=== PATIENT | female | born 1960 | race Caucasian/White ===

== ENCOUNTER 2016-10-22 20:45 | Emergency (ER) | payer OTHER ==
[2016-10-22] MEDS ORDERED: Pantoprazole IV* 40 MG IV ONE (23:01)
[2016-10-22] MEDS ORDERED: Al Hydrox/Mg Hydrox/Simet LIQ* 30 ML UDC PO ONE (23:01)
--- NOTE | 2016-10-22 23:02 | ED ---
Abdominal Pain/Female - HPI Summary HPI Summary: Pt here w/ epigastric pain and waking from sleep vomiting blood. Describes blood as "dark red" and "just kept coming". Reports this has happened to her 4 x in the past few months and thought she should come in to get it checked out tonight as it seemed like more than usual. Has been feeling fatigued over the past few weeks as well. Has h/o GERD - takes PPI occasionally but not routinely. Has not been taking peptobismal, etc. States she's trying to tx this by eating better - less coffee and switching to green tea which helps. Also avoid sauce, etc. Also takes Aleve daily for chronic pain. Smokes tobacco. Denies bleeding elsewhere or bruising. H/o hiatal hernia which she believes may be part of the issue today. Has had a colonoscopy in the past which she reports was normal. Has not been following w/ a PCP but states she has a h/o "weird labs " - does not recall details, timing or recourse due to "weird labs". Goes between constipation and diarrhea w/ stools x years. Denies dark tarry stools as well as hematochezia. Denies dysuria, urinary frequency/urgency, flank pain. H/o ETOH abuse w/o residual effects/complications of which she's aware. Takes librium daily and has not drank in years. Ab h/o entails Rt ovary partially removed d/t cyst - no cancer. She takes the following medications for pain and/or mood w/o recent change: *flexeril *Tramadol *seroquel *paxil *wellbutrin - History of Current Complaint Chief Complaint: EDAbdPain Stated Complaint: VOMITING BLOOD Time Seen by Provider: 10/22/16 22:36 Hx Obtained From: Patient Hx Last Menstrual Period: 20 years Pain Intensity: 9 Allergies/Adverse Reactions: Allergies Allergy/AdvReac Type Severity Reaction Status Date / Time Penicillins Allergy Intermediate Swelling Verified 06/15/15 12:51 Sulfa Antibiotics Allergy Mild Itching Verified 06/15/15 12:51 PMH/Surg Hx/FS Hx/Imm Hx Previously Healthy: Yes Endocrine/Hematology History: Denies: Hx Anticoagulant Therapy - daily Aleve for pain, Hx Blood Disorders, Hx Diabetes, Hx Thyroid Disease, Hx Anemia, Hx Unexplained Bleeding, Hx Coagulopothy, Autoimmune Disease Cardiovascular History: Denies: Hx Hypertension Respiratory History: Denies: Hx Asthma, Hx Chronic Obstructive Pulmonary Disease (COPD) GI History: Reports: Hx Gastroesophageal Reflux Disease, Hx Hiatal Hernia Denies: Hx Cirrhosis, Hx Crohn's Disease, Hx Diverticulosis, Hx Gall Bladder Disease, Hx Irritable Bowel, Hx Ulcer Psychiatric History: Reports: Other Psychiatric Issues/Disorders - Surgical History Surgery Procedure, Year, and Place: both knees,(cartilage repair) partial hyster (ovary/tube r/t tumor) Infectious Disease History: No Infectious Disease History: Denies: Hx Clostridium Difficile, Hx Hepatitis, Hx Human Immunodeficiency Virus (HIV), Hx of Known/Suspected MRSA, Hx Shingles, Hx Tuberculosis, History Other Infectious Disease, Traveled Outside the [place] in Last 30 Days - Family History Known Family History: Positive: None - Social History Occupation: Employed Full-time - overnight caregiver, care Alcohol Use: h/o abuse "years ago" Substance Use Type: Reports: None, Prescribed Smoking Status (MU): Current Every Day Smoker Type: Cigarettes Amount Used/How Often: ppd Review of Systems Positive: Fatigue. Negative: Fever, Chills Negative: Chest Pain Negative: Shortness Of Breath, Cough Gastrointestinal: Other - see HPI Positive: no symptoms reported Musculoskeletal: Other - chronic Skin: Negative Negative: Bruising Neurological: Negative Psychological: Normal All Other Systems Reviewed And Are Negative: Yes Physical Exam Triage Information Reviewed: Yes Vital Signs On Initial Exam: Initial Vitals Temp Pulse Resp BP Pulse Ox 97.3 F 90 15 119/84 97 10/22/16 20:45 10/22/16 20:45 10/22/16 20:45 10/22/16 20:45 10/22/16 20:45 Vital Signs Reviewed: Yes Appearance: Positive: Well-Appearing - generalized pallor, No Pain Distress, Well-Nourished Skin: Positive: Warm, Dry - no ecchymosis, no scabbing, no patechiae Head/Face: Positive: Normal Head/Face Inspection Eyes: Positive: Normal, EOMI, Conjunctiva Clear - anicteric sclera ENT: Positive: Hearing grossly normal, Pharynx normal - mucosa moist- no oral lesions or signs of bleeding observed Neck: Positive: Supple, Nontender Respiratory/Lung Sounds: Positive: Clear to Auscultation, Breath Sounds Present. Negative: Rales, Rhonchi, Wheezes Cardiovascular: Positive: Normal, RRR, Pulses are Symmetrical in both Upper and Lower Extremities, S1, S2. Negative: Murmur, Rub, Leg Edema Left, Leg Edema Right Abdomen Description: Positive: Soft, Other: - epigastric TTP - all other areas NTTP Bowel Sounds: Positive: Present Pelvic Exam: Positive: other - deferred Musculoskeletal: Positive: Normal, Strength/ROM Intact Neurological: Positive: Normal, Sensory/Motor Intact, Alert, Oriented to Person Place, Time, CN Intact II-III Psychiatric: Positive: Normal - Patricio Coma Scale Coma Scale Total: 15 Diagnostics - Vital Signs Vital Signs Temp Pulse Resp BP Pulse Ox 10/22/16 22:24 98.7 F 82 20 138/74 100 10/22/16 22:18 95 97 10/22/16 22:16 138/74 10/22/16 20:45 97.3 F 90 15 119/84 97 - Laboratory Result Diagrams: 10/22/16 22:45 10/22/16 22:45 Lab Statement: Any lab studies that have been ordered have been reviewed, and results considered in the medical decision making process. Re-Evaluation - Re-Evaluation First Eval Change: Improved - s/p rest, meds - still has some nausea Abdominal Pain Fem Course/Dx - Course Course Of Treatment: Pt presents w/ recurrent reported hematemesis w/ h/o poorly controlled and untreated GERD w/ hiatal hernia. No emesis episodes observed here in ED. CXR clear for gastric bubble in chest and aspiration pneumonia. Pt's vitals and labs are stable; (-) FOBT. Improved w/ rest in inclined position and w/ GI cocktail. D/c'd home w/ GERD/hernia instructions and stongly urged close f/u w/ GI. Pt agrees to establish w/ PCP and GI. She will also restart her home PPI and use lifestyle recommendations provided today (ie. STOP nsaid's, reduce smoking, coffee, don't overeat, sit up after meals, sleep w/ head of bed inclined, etc). Discussed danger s/sx of when to return to ED. Pt voices understanding. - Diagnoses Provider Diagnoses: GERD (gastroesophageal reflux disease) - Provider Notifications Discussed Care Of Patient With: Dr. Vidales Discharge - Discharge Plan Condition: Stable Disposition: HOME Patient Education Materials: Gastroesophageal Reflux Disease (ED) Forms: *Work Release Referrals: Prabhakar Cain MD [Medical Doctor] - Additional Instructions: You appear to have GERD, gastroesophageal reflux disorder. This was mostly relieved with maalox and protonix tonight. You were also given a nausea medication. It is recommended that you restart the prevacid you have at home. Take maalox and nausea medication as needed as well. You also expressed you are working on your diet which helps symptoms. Avoid greasy, spicy foods as well as overeating which can increase pressure in stomach and force contents up and out. It is also important that you do not lie down at least 90 minutes after eating and keep your head elevated when sleeping in general. DO NOT TAKE NSAID's - advil, ibuprofen, aleve, naproxen, aspirin. Avoid drinking alcohol, caffeine, and reduce/eliminate smoking. Follow-up with PCP and fretted string instrument repairer for further evaluation. Call tomorrow to schedule appointment. *If you develop a return of vomiting without rest and/or fever, chills, bloody diarrhea, worsening of abdominal pain return to ED
[2016-10-22] MEDS ORDERED: NS 0.9% 1000 ML* 1,000 ML IV ONE (23:04)
[2016-10-22 23:26] LABS: Hematocrit 37 % (35-47); Hemoglobin 11.9 g/dl (12.0-16.0); Mean Corpuscular HGB Conc 32 g/dl (31-36); Mean Corpuscular Hemoglobin 28 pg (27-31); Mean Corpuscular Volume 86 fL (80-97); Mean Platelet Volume 8 um3 (7.4-10.4); Red Blood Count 4.31 10^6/ul (4.0-5.4); Red Cell Distribution Width 15 % (10.5-15); White Blood Count 12.9 10^3/ul (3.5-10.8)
[2016-10-22 23:38] LABS: Albumin 3.9 g/dL (3.2-5.2); BUN/Creatinine Ratio 24.7 (8-20); C Reactive Protein 2.38 mg/L (< 5.00); Calcium 8.6 mg/dL (8.6-10.3); EGFR African American 106.4 (>60); EGFR Non-African American 82.8 (>60); Globulin 2.4 g/dL (2-4); Potassium 4.1 mmol/L (3.5-5.0); Total Bilirubin 0.2 mg/dL (0.2-1.0); Total Protein 6.3 g/dL (6.4-8.9)
[2016-10-22] MEDS ORDERED: Ondansetron ODT TAB* 4 MG PO ONE (23:58)
[2016-10-23 01:54] VITALS: BP 106/77
--- NOTE | 2016-10-23 07:34 | RAD ---
HISTORY: Vomiting blood, possible hiatal hernia COMPARISONS: None VIEWS:1: Single frontal portable view of the chest at 11:12 PM FINDINGS: LINES AND TUBES: None. CARDIOMEDIASTINAL SILHOUETTE: The cardiomediastinal silhouette is normal for portable technique. PLEURA: The costophrenic angles are sharp. No pleural abnormalities are noted. LUNG PARENCHYMA: There is linear opacification lung bases bilaterally ABDOMEN: The upper abdomen is clear. There is no subphrenic gas. BONES AND SOFT TISSUES: No bone or soft tissue abnormalities are noted. IMPRESSION: BIBASILAR LINEAR ATELECTASIS VERSUS PLEUROPARENCHYMAL SCARRING.
== END 2016-10-23 01:59 | disposition home or self-care (01) ==
LOC: ED 20:45
DX: K21.9 Gastro-esophageal reflux disease without esophagitis (principal); Z88.0 Allergy status to penicillin; Z88.8 Allergy status to other drugs, medicaments and biological substances; F17.290 Nicotine dependence, other tobacco product, uncomplicated
CPT/HCPCS: 36415; 71010; 80053; 82272; 83605; 83690; 85025; 85610; 85730; 86140; 96361; 96374; 99283; A9270-GY

== ENCOUNTER 2017-05-31 12:01 | Emergency (ER) | payer OTHER ==
[2017-05-31 12:22] VITALS: BP 111/59
--- NOTE | 2017-05-31 13:27 | UC ---
[facility] HPI - HPI Summary HPI Summary: Pt presents with pain in #2 tooth. Pt states approx 4 dayss ago broke tooth. PT states felt pressure into socket. pt with on going pain. Pt states feels swollen. Denies drainage. Mild ear pain. Pt has been taking Motrin/apap Pt has Rx for oxycodone for back - is not taking because working and causes drowsiness. Pt has also applied ambusol. Pt does not have dentist Pt's medications reviewed this visit - History of Current Complaint Chief Complaint: UCDentalProblem Stated Complaint: DENTAL PAIN Time Seen by Provider: 05/31/17 12:51 Hx Obtained From: Patient Hx Last Menstrual Period: 20 years Onset/Duration: Sudden Onset Severity: Mild Pain Intensity: 3 Pain Scale Used: 0-10 Numeric Aggravating Factor(s): Cold, Chewing Alleviating Factor(s): Topical Meds - Allergies/Home Medications Allergies/Adverse Reactions: Allergies Allergy/AdvReac Type Severity Reaction Status Date / Time Penicillins Allergy Intermediate Swelling Verified 05/31/17 12:17 Sulfa Antibiotics Allergy Mild Itching Verified 05/31/17 12:17 PMH/Surg Hx/FS Hx/Imm Hx Previously Healthy: Yes Other History Of: Negative For: Anticoagulant Therapy - daily Aleve for pain - Surgical History Surgical History: Yes Surgery Procedure, Year, and Place: both knees,(cartilage repair) partial hyster (ovary/tube r/t tumor) - Family History Known Family History: Positive: None - Social History Occupation: Employed Full-time Lives: With Family Alcohol Use: None Substance Use Type: None, Prescribed Smoking Status (MU): Current Every Day Smoker Type: Cigarettes Amount Used/How Often: ppd Review of Systems Constitutional: Negative ENT: Dental Pain All Other Systems Reviewed And Are Negative: Yes Physical Exam Triage Information Reviewed: Yes Appearance: Well-Appearing, No Pain Distress, Well-Nourished Vital Signs: Initial Vital Signs Temp 98.4 F 05/31/17 12:19 Pulse 114 05/31/17 12:19 Resp 18 05/31/17 12:19 BP 111/59 05/31/17 12:19 Pulse Ox 99 05/31/17 12:19 Eye Exam: Normal Eyes: Positive: Conjunctiva Clear ENT Exam: Normal ENT: Positive: Normal ENT inspection, Hearing grossly normal, Pharynx normal, TMs normal Dental: Positive: Gross Decay/Caries @, Dental Fracture @, Other: - Pt with broken #2 tooth. + erythema edema at gumline. no fluctuance Neck exam: Normal Neck: Positive: Supple, Nontender, No Lymphadenopathy Respiratory Exam: Normal Respiratory: Positive: Chest non-tender, Lungs clear, Normal breath sounds, No respiratory distress, No accessory muscle use Cardiovascular Exam: Normal Cardiovascular: Positive: RRR, No Murmur, Pulses Normal Musculoskeletal Exam: Normal Musculoskeletal: Positive: Strength Intact Neurological Exam: Normal Neurological: Positive: Alert Psychological Exam: Normal Psychological: Positive: Normal Response To Family Skin Exam: Normal Dental Complaint Course/Dx - Course Course Of Treatment: Pt with progessive dental pain following broken tooth last week. Pt with broken tooth with erythema and edema at gumline. Will Rx clinda. swish and spit. motrin/apap - pt has oxycodone. dental list given - Differential Dx/Diagnosis Provider Diagnoses: dental abscess Discharge - Discharge Plan Condition: Stable Disposition: HOME Prescriptions: Clindamycin Cap(NF) [Clindamycin Cap 300 mg Cap(NF)] 300 mg PO TID #30 cap Patient Education Materials: Dental Abscess (ED) Referrals: Thalia Lu MD [Primary Care Provider] - Additional Instructions: - stay well hydrated. Drink plenty of non-alcoholic, non-caffinated beverages - Take antibiotics as prescribed until gone. This may cause diarrhea - take immodium, yogurt, or pro-biotic - Okay to alternate ibuprofen (Advil, Motrin) and tylenol product (Tylenol or oxycodone) every 3 hours for pain. - apply heat or ice back to your cheek - gargle and spit with warm salt water 2-3 times a day - You have been given a referral to dentist - call to arrange and appointment
== END 2017-05-31 13:20 | disposition home or self-care (01) ==
LOC: UCEAST 12:01
DX: K04.7 Periapical abscess without sinus (principal); Z88.0 Allergy status to penicillin; Z88.2 Allergy status to sulfonamides; F17.210 Nicotine dependence, cigarettes, uncomplicated
CPT/HCPCS: 99212; G0463

== ENCOUNTER 2017-10-06 10:41 | Emergency (ER) | payer OTHER ==
[2017-10-06 11:00] VITALS: BP 117/83
--- NOTE | 2017-10-06 12:01 | UC ---
Dental HPI - HPI Summary HPI Summary: Pt presents with dental pain in right upper mouth. She says that she knows she has bad teeth and has many broken teeth. Is in the process of getting a dentist. Is still able to eat and drink, but does have pain. Denies fever, chills. - History of Current Complaint Chief Complaint: UCDentalProblem Stated Complaint: DENTAL COMPLAINT Time Seen by Provider: 10/06/17 12:00 Hx Obtained From: Patient Hx Last Menstrual Period: 20 years Onset/Duration: Gradual Onset Severity: Severe Pain Intensity: 10 Pain Scale Used: 0-10 Numeric - Allergies/Home Medications Allergies/Adverse Reactions: Allergies Allergy/AdvReac Type Severity Reaction Status Date / Time Penicillins Allergy Swelling Verified 10/06/17 11:01 Sulfa (Sulfonamide Allergy Itching Verified 10/06/17 11:01 Antibiotics) Home Medications: Home Medications buPROPion TAB* [Wellbutrin TAB*] 1 tab PO DAILY 10/06/17 [History Confirmed 12/19] chlordiazePOXIDE CAP* [Librium CAP*] 1 tab PO BID PRN 10/06/17 [History Confirmed 10/06/17] PMH/Surg Hx/FS Hx/Imm Hx Psychological History: Anxiety, Depression, Bipolar Disorder Other History Of: Negative For: Anticoagulant Therapy - daily Aleve for pain - Surgical History Surgical History: Yes Surgery Procedure, Year, and Place: both knees,(cartilage repair) partial hyster (ovary/tube r/t tumor) - Family History Known Family History: Positive: None - Social History Lives: With Family Alcohol Use: Rare Substance Use Type: Prescribed Smoking Status (MU): Heavy Every Day Tobacco Smoker Type: Cigarettes Amount Used/How Often: 1 ppd Household Exposure Type: Cigarettes Review of Systems Constitutional: Negative Skin: Negative Eyes: Negative ENT: Dental Pain Respiratory: Negative Cardiovascular: Negative Gastrointestinal: Negative Neurological: Negative Psychological: Negative All Other Systems Reviewed And Are Negative: Yes Physical Exam Triage Information Reviewed: Yes Appearance: Well-Appearing, No Pain Distress, Well-Nourished Vital Signs: Initial Vital Signs Temp 98.4 F 10/06/17 10:53 Pulse 90 10/06/17 10:53 Resp 18 10/06/17 10:53 BP 117/83 10/06/17 10:53 Pulse Ox 98 10/06/17 10:53 Vital Signs Reviewed: Yes ENT: Positive: Hearing grossly normal, Pharynx normal, Dental tenderness, Uvula midline. Negative: Pharyngeal erythema, Sinus tenderness Dental: Positive: Percussion Tenderness @ - Tooth 13, Gross Decay/Caries @ - Throughout, Abscess @ - Tooth 13. Negative: Cervical Lymphadenopathy, Bleeding Neck: Positive: Supple, Nontender, No Lymphadenopathy Respiratory: Positive: Lungs clear, Normal breath sounds, No respiratory distress Cardiovascular: Positive: RRR, No Murmur, Pulses Normal Neurological: Positive: Alert Psychological: Positive: Age Appropriate Behavior Skin: Negative: rashes Dental Complaint Course/Dx - Course Course Of Treatment: Dental abscess Tooth 13 - Differential Dx/Diagnosis Provider Diagnoses: Dental abscess Tooth 13 Discharge - Discharge Plan Condition: Stable Disposition: HOME Prescriptions: Chlorhexidine MOUTHWASH 0.12%* [Peridex Mouth Wash 0.12%*] 15 ml MT BID #473 ml Clindamycin HCl 300 mg PO TID #21 capsule Patient Education Materials: Dental Abscess (ED) Referrals: Thalia Lu MD [Primary Care Provider] - Additional Instructions: If you develop a fever, shortness of breath, chest pain, new or worsening symptoms - please call your PCP or go to the ED. Your blood pressure was high at todays visit. Please see your primary provider within 4 weeks for recheck and re-evaluation.
== END 2017-10-06 12:11 | disposition home or self-care (01) ==
LOC: UCEAST 10:41
DX: K04.7 Periapical abscess without sinus (principal); F41.9 Anxiety disorder, unspecified; F31.9 Bipolar disorder, unspecified; Z88.0 Allergy status to penicillin; Z88.2 Allergy status to sulfonamides; F17.210 Nicotine dependence, cigarettes, uncomplicated
CPT/HCPCS: 99212; G0463

== ENCOUNTER 2017-12-24 09:30 | Emergency (ER) | payer OTHER ==
[2017-12-24 10:59] VITALS: BP 110/73
[2017-12-24] MEDS ORDERED: Ondansetron ODT TAB* 4 MG PO ONE (11:07)
[2017-12-24] MEDS ORDERED: Ondansetron ODT TAB* 4 MG ONE (11:10)
--- NOTE | 2017-12-24 11:17 | UC ---
Abdominal Pain Female HPI - HPI Summary HPI Summary: PT PRESENTS WITH 3 DAYS OF NAUSEA AND VOMITING 2-3 TIMES DAILY. IS FEELING A BIT BETTER TODAY BUT THIS MORNING NOTICED LEFT SIDED CP THAT FEELS LIKE " A PULLED MUSCLE". ALSO HAD SOME WATERY DIARRHEA THAT IS ALSO BETTER TODAY. DENIES FEVER, SOB, SWEATS, DIZZINESS. - History of Current Complaint Chief Complaint: UCChestPain Stated Complaint: CHEST PAIN,VOMITING Time Seen by Provider: 12/24/17 10:32 Hx Obtained From: Patient Hx Last Menstrual Period: 20 years Onset/Duration: Gradual Onset, Lasting Days, Still Present - BUT BETTER Severity Initially: Moderate Severity Currently: Moderate Pain Intensity: 4 Pain Scale Used: 0-10 Numeric Radiates: No Character: Aching Aggravating Factor(s): Food Alleviating Factor(s): Nothing Associated Signs and Symptoms: Positive: Chest Pain, Decreased Appetite, Nausea , Vomiting, Diarrhea. Negative: Diaphoresis, Fever, Cough, Back Pain, Constipation, Blood in Stool, Urinary Symptoms Allergies/Adverse Reactions: Allergies Allergy/AdvReac Type Severity Reaction Status Date / Time Penicillins Allergy Swelling Verified 12/24/17 09:50 Sulfa (Sulfonamide Allergy Itching Verified 12/24/17 09:50 Antibiotics) Home Medications: Home Medications Omeprazole CAP* [Prilosec CAP* 20 MG] 20 mg PO DAILY 12/24/17 [History Confirmed 12/24/17] PMH/Surg Hx/FS Hx/Imm Hx - Additional Past Medical History Additional PMH: Chronic back pain GI/ History: Gastroesophageal Reflux Psychological History: Anxiety, Depression Other History Of: Negative For: Anticoagulant Therapy - daily Aleve for pain - Surgical History Surgical History: Yes Surgery Procedure, Year, and Place: both knees,(cartilage repair) partial hyster (ovary/tube r/t tumor) - Family History Known Family History: Positive: None Negative: Cardiac Disease, Hypertension - Social History Alcohol Use: Occasionally Substance Use Type: None Smoking Status (MU): Heavy Every Day Tobacco Smoker Type: Cigarettes Amount Used/How Often: 1 ppd Household Exposure Type: Cigarettes Review of Systems Constitutional: Negative Skin: Negative Respiratory: Negative Cardiovascular: Chest Pain Gastrointestinal: Vomiting, Diarrhea, Nausea All Other Systems Reviewed And Are Negative: Yes Physical Exam Triage Information Reviewed: Yes Appearance: Well-Appearing, No Pain Distress, Well-Nourished Vital Signs: Initial Vital Signs Temp 96.7 F 12/24/17 09:46 Pulse 76 12/24/17 09:46 Resp 18 12/24/17 09:46 BP 120/61 12/24/17 09:46 Pulse Ox 95 12/24/17 09:46 Vital Signs Reviewed: Yes Eyes: Positive: Conjunctiva Clear ENT: Positive: Hearing grossly normal Neck: Positive: Supple, Nontender, No Lymphadenopathy Respiratory Exam: Normal Cardiovascular Exam: Normal Abdomen Description: Positive: Soft. Negative: CVA Tenderness (R), CVA Tenderness (L), Distended, Guarding Musculoskeletal: Positive: No Edema, Other: - MILDLY TENDER OVER ANTERIOR RIB CAGE Neurological: Positive: Alert Psychological: Positive: Age Appropriate Behavior Skin: Negative: rashes Diagnostics - EKG Cardiac Rate: NL Cardiac Rhythm: Sinus: Normal Ectopy: None ST Segment: Normal Abd Pain Female Course/Dx - Course Course Of Treatment: DISCUSSED WITH PATIENT POSSIBILITY OF GI ETIOLOGY VERSUS CARDIAC ETIOLOGY. PATIENTS PRESENTATION IS MORE IN LINE WITH GI CONDITION. EKG UNREMARKABLE TODAY. PATIENT WOULD LIKE TO TRY CONSERVATIVE MANAGEMENT FOR GASTROENTERITIS. DECLINES TRANSFER TO ED FOR CARDIAC WORKUP. ADVISED TO GO TO THE ED WITHOUT FAIL IF HER SYMPTOMS WORSEN OR CHANGE. - Differential Dx/Diagnosis Provider Diagnoses: ACUTE GASTROENTERITIS Discharge - Sign-Out/Discharge Documenting (check all that apply): Discharge/Admit/Transfer - Discharge Plan Condition: Stable Disposition: HOME Prescriptions: Ondansetron ODT TAB* [Zofran Odt TAB*] 4 mg PO Q6H PRN #20 tab.odt PRN Reason: Nausea/Vomiting Patient Education Materials: Gastroenteritis (ED), Acute Nausea and Vomiting ( ED) Forms: *Work Release Referrals: Thalia Lu MD [Primary Care Provider] - If Needed Additional Instructions: YOUR EKG TODAY IS UNREMARKABLE. YOUR SYMPTOMS ARE MORE CONSISTENT WITH GASTROENTERITIS THAN CARDIAC ETIOLOGY. CLEAR LIQUIDS/BLAND DIET. ZOFRAN NEEDED FOR NAUSEA. ENSURE THAT YOU ARE STAYING WELL-HYDRATED. GO TO THE ED WITHOUT FAIL IF YOU DEVELOP WORSENING CHEST PAIN, SHORTNESS OF BREATH, DIZZINESS , BLOOD IN THE VOMIT OR STOOL OR ANY OTHER CONCERNING SYMPTOMS. - Billing Disposition and Condition Condition: STABLE Disposition: HOME
== END 2017-12-24 11:20 | disposition home or self-care (01) ==
LOC: UCEAST 09:30
DX: K52.9 Noninfective gastroenteritis and colitis, unspecified (principal); R07.89 Other chest pain; K21.9 Gastro-esophageal reflux disease without esophagitis; F41.9 Anxiety disorder, unspecified; F32.9 Major depressive disorder, single episode, unspecified; Z88.0 Allergy status to penicillin; Z88.2 Allergy status to sulfonamides; F17.210 Nicotine dependence, cigarettes, uncomplicated
CPT/HCPCS: 93005; 99212; A9270-GY; G0463

== ENCOUNTER 2018-01-21 13:59 | Emergency (ER) | payer OTHER ==
[2018-01-21 14:33] VITALS: BP 117/77
--- NOTE | 2018-01-21 15:15 | UC ---
Patsy Melchor Jade, scribed for Maximino Dyer MD on 01/21/18 at 1441 . Laceration HPI - HPI Summary HPI Summary: Pt is a 57 y/o female presents to [facility] s/p self-inflicted laceration. She states started drinking last night and continued drinking into today. Pt cut her left wrist with a razor [employer], and states she has cut herself several times in the past. She wrapped a towel around the wound in an attempt to stop the bleeding. Pts has thumb pain with movement. She has PMHx of depression and anxiety, and has been non-compliant with her medications for the past 3 weeks. Her medications are Librium, Wellbutrin, Seroquel, and Prozac. Pt also states she has not been able to sleep for 2 weeks. Pain is rated 6/10 in severity, and is described as aching and throbbing. Pt today is accompanied by a female. - History Of Current Complaint Chief Complaint: UCLaceration Stated Complaint: WRIST LAC Time Seen by Provider: 01/21/18 14:36 Hx Obtained From: Patient Hx Last Menstrual Period: hyster- partial Laceration Location: Arm - Left forearm Mechanism Of Injury: Sharp Trauma - Razor Onset/Duration: Sudden Onset, Lasting Hours - [employer]CH[employer] 1 hour ago, Still Present Severity: Moderate Pain Intensity: 6 Pain Scale Used: 0-10 Numeric Aggravating Factors: Other: - Medication non-compliance - Allergies/Home Medications Allergies/Adverse Reactions: Allergies Allergy/AdvReac Type Severity Reaction Status Date / Time Penicillins Allergy Swelling Verified 01/21/18 14:21 Sulfa (Sulfonamide Allergy Itching Verified 01/21/18 14:21 Antibiotics) PMH/Surg Hx/FS Hx/Imm Hx GI/ History: Gastroesophageal Reflux Psychological History: Anxiety, Depression Other History Of: Negative For: Anticoagulant Therapy - daily Aleve for pain - Surgical History Surgical History: Yes Surgery Procedure, Year, and Place: both knees,(cartilage repair) partial hyster (ovary/tube r/t tumor) - Family History Known Family History: Negative: Cardiac Disease, Hypertension - Social History Alcohol Use: Occasionally Substance Use Type: None Smoking Status (MU): Heavy Every Day Tobacco Smoker Type: Cigarettes Amount Used/How Often: 1 ppd Household Exposure Type: Cigarettes Review of Systems Skin: Other - Self-inflicted laceration dorsal left wrist Psychological: Depressed All Other Systems Reviewed And Are Negative: Yes Physical Exam - Summary Physical Exam Summary: General: well-appearing, no pain distress Skin: warm, color reflects adequate perfusion, dry. 3.5 cm laceration on dorsum of left wrist into subcutaneous tissue. Head: normal Eyes: EOMI, ANIL ENT: normal Neck: supple, nontender Respiratory: CTA, breath sounds present Cardiovascular: RRR. Good capillary refill distal to laceration. Abdomen: soft, nontender Bowel: present Musculoskeletal: normal, strength/ROM intact, able to move fingers, left thumb pain with movement. Neurological: sensory/motor intact, A&O x3 Psychological: depressed Triage Information Reviewed: Yes Vital Signs: Initial Vital Signs Temp 99.3 F 01/21/18 14:21 Pulse 86 01/21/18 14:21 Resp 16 01/21/18 14:21 BP 117/77 01/21/18 14:21 Pulse Ox 96 01/21/18 14:21 Vital Signs Reviewed: Yes Laceration Course/Dx - Course/Dx Course Of Treatment: AFTER COMPRESSION, THE WRIST LACERATION IS NOT ACTIVELY BLEEDING HERE IN CLINIC. I FILLED OUT 957 AND TRANSPORTED THE PATIENT TO THE ED VIA AMBULANCE. - Differential Dx - Laceration/Wound Provider Diagnoses: DEPRESSION. MENTAL HEALTH PROBLEM. INTENTIONAL SELF HARM. LEFT WRIST LACERATION Discharge - Sign-Out/Discharge Documenting (check all that apply): Discharge/Admit/Transfer - Transfer TO ED VIA AMBULANCE - Discharge Plan Condition: Stable Disposition: TRANS HIGHER LVL OF CARE FAC Referrals: Thalia Lu MD [Primary Care Provider] - - Billing Disposition and Condition Condition: STABLE Disposition: Trans Higher Lvl of Care Fac The documentation as recorded by the Patsy regan Jade accurately reflects the service I personally performed and the decisions made by me, Maximino Dyer MD.
== END 2018-01-21 14:48 | disposition short-term general hospital (02) ==
LOC: UCEAST 13:59
DX: S61.512A Laceration without foreign body of left wrist, initial encounter (principal); X78.8XXA Intentional self-harm by other sharp object, initial encounter; Y92.9 Unspecified place or not applicable; F32.9 Major depressive disorder, single episode, unspecified; F17.210 Nicotine dependence, cigarettes, uncomplicated
CPT/HCPCS: 99213; G0463

== ENCOUNTER 2018-05-17 17:07 | Inpatient (IN) | payer OTHER ==
--- NOTE | 2018-05-17 17:58 | ED ---
Psychiatric Complaint - HPI Summary HPI Summary: The patient is a 57 y/o F presenting to [facility] police with a chief complaint of cutting her left wrist today. She states that she doesn't remember what happened or what she cut her wrist with, but she said she was told that she went somewhere she shouldn't have been. She denies SI and HI at this time. She has hx of anxiety and depression with previous attempts of cutting, which she takes medication for. Her last tetanus shot was more than five years ago. - History Of Current Complaint Chief Complaint: EDMentalHealth Time Seen by Provider: 05/17/18 17:39 Hx Obtained From: Patient Hx Last Menstrual Period: hyster- partial ?: No Onset/Duration: Sudden Onset, Lasting Hours, Still Present Timing: Hours Severity Initially: Moderate Severity Currently: Moderate Character: Anxious Aggravating Factor(s): Nothing Alleviating Factor(s): Nothing Related History: Positive For: Prior Psychiatric Issues Has Suicidal: Reports: Has Prior Attempt(s) - cut her left wrist very recently and also has before Has Homicidal: Denies: Thoughts, With A Plan, Demonstrates Gesture, Has Prior Attempt(s) - Allergies/Home Medications Allergies/Adverse Reactions: Allergies Allergy/AdvReac Type Severity Reaction Status Date / Time Penicillins Allergy Swelling Verified 01/21/18 14:21 Sulfa (Sulfonamide Allergy Itching Verified 01/21/18 14:21 Antibiotics) PMH/Surg Hx/FS Hx/Imm Hx Endocrine/Hematology History: Denies: Hx Anticoagulant Therapy - daily Aleve for pain, Hx Blood Disorders, Hx Diabetes, Hx Thyroid Disease, Hx Anemia, Hx Unexplained Bleeding Cardiovascular History: Denies: Hx Hypertension Respiratory History: Denies: Hx Asthma, Hx Chronic Obstructive Pulmonary Disease (COPD) GI History: Reports: Hx Gastroesophageal Reflux Disease, Hx Hiatal Hernia Denies: Hx Cirrhosis, Hx Crohn's Disease, Hx Diverticulosis, Hx Gall Bladder Disease, Hx Irritable Bowel, Hx Ulcer Psychiatric History: Reports: Other Psychiatric Issues/Disorders Denies: Hx Eating Disorder - Surgical History Surgery Procedure, Year, and Place: both knees,(cartilage repair) partial hyster (ovary/tube r/t tumor) - Immunization History Date of Tetanus Vaccine: unsure Infectious Disease History: No Infectious Disease History: Denies: Hx Clostridium Difficile, Hx Hepatitis, Hx Human Immunodeficiency Virus (HIV), Hx of Known/Suspected MRSA, Hx Shingles, Hx Tuberculosis, Hx Known/ Suspected VRE, Hx Known/Suspected VRSA, History Other Infectious Disease, Traveled Outside the [place] in Last 30 Days - Family History Known Family History: Negative: Cardiac Disease, Hypertension, Diabetes - Social History Alcohol Use: Occasionally Alcohol Amount: drank today Hx Substance Use: No Substance Use Type: Reports: None Hx Tobacco Use: Yes Smoking Status (MU): Heavy Every Day Tobacco Smoker Type: Cigarettes Amount Used/How Often: 1 ppd Review of Systems Positive: Other - laceration to the left wrist Positive: Other - NEGATIVE: SI, HI All Other Systems Reviewed And Are Negative: Yes Physical Exam - Summary Physical Exam Summary: Appearance: The patient is well-nourished in no acute distress and in no acute pain. Skin: The skin is warm and dry and skin color reflects adequate perfusion. There is a small laceration to the left wrist. HEENT: The head is normocephalic and atraumatic. The pupils are equal and reactive. The conjunctivae are clear and without drainage. Nares are patent and without drainage. Mouth reveals moist mucous membranes and the throat is without erythema and exudate. The external ears are intact. The ear canals are patent and without drainage. The tympanic membranes are intact. Neck: The neck is supple with full range of motion and non-tender. There are no carotid bruits. There is no neck vein distension. Respiratory: Chest is non-tender. Lungs are clear to auscultation and breath sounds are symmetrical and equal. Cardiovascular: Heart is regular rate and rhythm. There is no murmur or rub auscultated. There is no peripheral edema and pulses are symmetrical and equal. Abdomen: The abdomen is soft and non-tender. There are normal bowel sounds heard in all four quadrants and there is no organomegaly palpated. Musculoskeletal: There is no back tenderness noted. Extremities are non-tender with full range of motion. There is good capillary refill. There is no peripheral edema or calf tenderness elicited. Neurological: Patient is alert and oriented to person, place and time. The patient has symmetrical motor strength in all four extremities. Cranial nerves are grossly intact. Deep tendon reflexes are symmetrical and equal in all four extremities. Psychiatric: The patient has an appropriate affect and does not exhibit any anxiety or depression. Triage Information Reviewed: Yes Vital Signs On Initial Exam: Initial Vitals Temp Pulse Resp BP Pulse Ox 97.8 F 109 14 123/74 96 05/17/18 17:09 05/17/18 17:09 05/17/18 17:09 05/17/18 17:09 05/17/18 17:09 Vital Signs Reviewed: Yes Diagnostics - Vital Signs Vital Signs Temp Pulse Resp BP Pulse Ox 05/17/18 17:09 97.8 F 109 14 123/74 96 - Laboratory Result Diagrams: 05/17/18 17:57 05/17/18 17:57 Lab Statement: Any lab studies that have been ordered have been reviewed, and results considered in the medical decision making process. Course/Dx - Course Course Of Treatment: Ms. Troncoso was brought into the ED on an involuntary basis after she cut her wrist. She was found to have superficial lacerations to the left volar wrist. Labs were obtained and within normal limits so she was medically cleared. She has been sent to the behavioral pod for mental health eval at this point. - Differential Dx/Clinical Impression Provider Diagnosis: Superficial laceration, Adjustment disorder Discharge - Sign-Out/Discharge Documenting (check all that apply): Sign-Out Patient Signing out patient TO: Rod Teague - Discharge Plan Condition: Stable Referrals: Thalia Lu MD [Primary Care Provider] - - Billing Disposition and Condition Condition: STABLE - Attestation Statements Document Initiated by Dwaine: Yes Documenting Scribe: Lucille Arriaga Provider For Whom Dwaine is Documenting (Include Credential): Dr. Giovanny Mccracken MD Scribe Attestation: Lucille Melchor scribed for Dr. Giovanny Mccracken MD on 05/17/18 at 2111. Scribe Documentation Reviewed: Yes Provider Attestation: The documentation as recorded by the Lucille regan accurately reflects the service I personally performed and the decisions made by me, Dr. Giovanny Mccracken MD
[2018-05-17 18:08] LABS: ABS Basophils 0.1 10^3/ul (0-0.2); ABS Eosinophils 0.2 10^3/ul (0-0.6); ABS Lymphocytes 2.9 10^3/ul (1.0-4.8); ABS Monocytes 0.4 10^3/ul (0-0.8); ABS Neutrophils 2.7 10^3/ul (1.5-7.7); ABS Nucleated RBC 0 10^3/ul; Eosinophil % 3.5 % (0-6); Hematocrit 41 % (35-47); Hemoglobin 13.5 g/dl (12.0-16.0); Lymphocyte % 46.2 % (25-47); Mean Corpuscular HGB Conc 33 g/dl (31-36); Mean Corpuscular Hemoglobin 29 pg (27-31); Mean Corpuscular Volume 86 fL (80-97); Mean Platelet Volume 7.1 um3 (7.4-10.4); Nucleated Red Blood Cells % 0.1; Platelet Count 314 10^3/ul (150-450); Red Blood Count 4.74 10^6/ul (4.00-5.40); Red Cell Distribution Width 15 % (10.5-15); White Blood Count 6.2 10^3/ul (3.5-10.8)
[2018-05-17 18:12] LABS: Urine Appearance Clear; Urine Blood 1+ (Negative); Urine Color Straw; Urine Ketones Negative (Negative); Urine Protein Negative (Negative); Urine Red Blood Cell Trace(0-2/hpf) (Absent); Urine Specific Gravity 1.004 (1.010-1.030); Urine Urobilinogen Negative (Negative); Urine White Blood Cell Trace(0-5/hpf) (Absent)
[2018-05-17 18:24] LABS: EGFR Non-African American 78.4 (>60)
--- NOTE | 2018-05-18 03:40 | ED ---
Progress - Progress Note Progress Note: Patient was received as a sign out from Dr. Mccracken to Dr. Teague at 2200 05/17/18 for shift change, pending MHE and disposition of patient. 031 - Dr. Denny has reviewed patient's case. He recommends admission of patient to [facility] [place]. Teague is agreeable with this. Dx of unspecified psychosis. - Consult/PCP Time Called: 11:00 Course/Dx - Course Course Of Treatment: Patient was received as a sign out from Dr. Mccracken to Dr. Teague at 2200 05/17/18 for shift change, pending MHE and disposition of patient. 0310 - Dr. Denny has reviewed patient's case. He recommends admission of patient to [facility] [place]. Teague is agreeable with this. Dx of unspecified psychosis. - Diagnoses Provider Diagnoses: Unspecified psychosis - Provider Notifications Discussed Care Of Patient With: Leanna Denny Time Discussed With Above Provider: 03:10 Instructed by Provider To: Other - 031 - Dr. Denny has reviewed patient's case. He recommends admission of patient to [facility] [place]. Teague is agreeable with this. Discharge - Sign-Out/Discharge Documenting (check all that apply): Patient Departure - admit - Discharge Plan Condition: Stable Disposition: PSYCHIATRIC FACILITY[place] Referrals: Thalia Lu MD [Primary Care Provider] - - Attestation Statements Document Initiated by Scribe: Yes Documenting Scribe: David Travis Provider For Whom [employer] is Documenting (Include Credential): Rod Teague MD Scribe Attestation: David Melchor , scribed for Rod Teague MD on 05/18/18 at 0340.
[2018-05-18] MEDS: Omeprazole CAP* 20 MG PO SCH (07:51)
[2018-05-18] MEDS: BuPROPion XL* 150 MG TAB.XL PO SCH (08:04)
[2018-05-18] MEDS ORDERED: QUEtiapine TAB* 100 MG PO SCH (21:00)
[2018-05-19 08:22] VITALS: BP 130/73
[2018-05-19] MEDS: Omeprazole CAP* 20 MG PO SCH (09:21)
[2018-05-19] MEDS: BuPROPion XL* 150 MG TAB.XL PO SCH (09:21)
--- NOTE | 2018-05-19 10:00 | HP ---
HISTORY AND PHYSICAL: DATE OF ADMISSION: 05/18/18 PROVIDER: Stephanie Castro NP in Psychiatry. SUPERVISING PHYSICIAN: Jean-Claude Carver MD.* (DICTATED BY STEPHANIE CASTRO NP ) JUSTIFICATION FOR ADMISSION: The patient is in need of 24-hour supervision and care secondary to gross disorganization. CHIEF COMPLAINT: "I don't remember anything that happened." HISTORY OF PRESENT ILLNESS: The patient is a 57-year-old white female who is single with a history of major depressive disorder and alcohol use disorder who arrives brought in by the police on a 9.39 status after going up to a woman named Deb's house, leaving a note and allowing blood to be left on the door knob. The problem with the story is that Megan does not remember any of it. Nevertheless, she has cut espinal on her left wrist, which she also does not remember inflicting. She states that the woman Deb who she went to her house, they had some kind of almost romantic relationship but Deb asked her in January not to come back, so in trying to be respectful, Megan has not been going back since January. Nevertheless, through some kind of problem, Megan does not remember doing that. This is not the first episode of her not being able to remember things. She is under significant stress. Her roommate Jess has some manner of dementia, money is tight. She works long hours at [employer] for [employer]. She states she missed her meds for a few days. She "got so stressed out that I...popped out of the picture." She has no idea why she has cuts on her left wrist. She states that recently she has begun feeling better letting go off things "I am pretty much a squirrel...a loner." Interestingly, Megan did have a few drinks. By the time she got to the hospital, her alcohol level was 0.034, but she is unclear when she started drinking or exactly how much, she is evasive about that. PAST PSYCHIATRIC HISTORY: She states she recognized that she has been depressed since age 5 or 6 and that depression has gotten worse as she has gotten older. She is afraid of closed rooms with lots of people. She states that the missing time began in January. She has never had a suicide attempt and she has chronic fleeting suicidal ideation. She does not remember previous psychiatric meds but current medications are Wellbutrin 150, Prozac 60, Seroquel 400 at h[facility]s. and some kind of antianxiety that she cannot remember. She states it begins with "A, t" but she does not know if it is Atarax, she says it is not Ativan. She has had many concussions and recently fell. FAMILY HISTORY: Her brother young. She states the world revolved around him, so she was lost for a while along with her sister. Her step-father suicided. She does not discuss her mother or father. SUBSTANCE ABUSE: She has been in treatment of alcohol use in the past. She states this was not the focus, she believes it was mental illness that brought her to the place that she was when she was being treated for alcohol abuse. She denies nicotine or other drugs. SOCIAL HISTORY: She states that she currently lives with Jess, her roommate who is demented. She was previously briefly in the . She is not or partnered. She has a step-child who she treats as her own. She is employed for [employer] and works at [employer]. She used to work for [employer]. She states they have been short on people at work, she was working up to 16 hours a day and not getting many days off. They finally got more people but she is still working very hard because they are not completely trained. She says she is not good with relaxation. She has been in custodial before, relationship things, but she states she does not remember all of that either. There are no current legal charges pending that we know of. REVIEW OF SYSTEMS: The patient reports feeling fatigued. She denies shortness of breath, heat or cold intolerance, chest pain or abdominal pain. She denies neurological symptoms. She denies fevers or changes in weight. The cuts on her left wrist are bothersome to her. PHYSICAL EXAMINATION VITAL SIGNS: Temperature 98.2, pulse 80, respirations 16, O2 sat on room air 100%, blood pressure 107/77. For further exam data, please see emergency department record. There was nothing remarkable in that exam. LABORATORY DATA: The abnormalities include MPV being low at 7.1, urine contained 1+ blood, there were squamous epithelial cells present. There is a positive for benzodiazepines and her serum alcohol was 36. Her TSH was 1.14. There are no data for lipids or hemoglobin A1c and I will order those. MENTAL STATUS EXAM: This is a 57-year-old woman who appears her stated age. She is overweight, obese. She has prieto hair. She wears glasses. She is evasive in her answers. She is not enthusiastic about being here. She does not want to leave her room in case she sees a client that she knows. She is sitting calmly in her bed. She is superficially or minimally cooperative. She is somewhat irritable. Her speech has a normal rate, tone and volume. She is dysthymic. She has poor eye contact. Her thought processes appear to be logical. Her thought content is free of delusions. She is not suicidal or homicidal. She is not having hallucinations. Her insight is fair. Her judgment is fair. She is alert and oriented x3. DIAGNOSES: [place] I: Major depressive disorder, rule out alcohol abuse disorder. [place] II: Deferred. IMPRESSION: Megan is a 57-year-old woman who comes in after being having the police called on her for leaving a note and leaving blood on the door knob of a former potential romantic partner. Although she denies being intoxicated, it is the most parsimonious explanation of what occurred that she was drinking and blacked out in combination with her several TBIs. PLAN: She is admitted to adult behavioral health unit and placed on q.15 minute checks for her own safety. She is encouraged to participate in supportive milieu, individual and group therapies. She has declined any therapy or activities that consist of being in the milieu. Her estimated length is 2 to 3 days. We will commence discharge planning as she is not willing to engage in treatment and she is not suicidal or homicidal. Further, she is very motivated to go back to work at [employer]. STEPHANIE CASTRO, SHMUEL [id number]/[facility] #: [id number] MOLLY
--- NOTE | 2018-05-20 09:55 | DS ---
CC: [facility]; * DISCHARGE SUMMARY: DATE OF ADMISSION: 05/18/18 DATE OF DISCHARGE: 05/19/18 PROVIDER: Stephanie Castro NP, in Psychiatry. SUPERVISING PHYSICIAN: Dr. Jean-Claude Carver.* (DICTATED BY STEPHANIE CASTRO NP ) DIAGNOSES: [place] I: Major depressive disorder. [place] II: Deferred. CONDITION AT THE TIME OF DISCHARGE: Improved, psychiatrically cleared, stable. She did not participate in groups, but she was social with peers. She did well here psychiatrically. No new meds were initiated. She will attend [facility]. MENTAL STATUS EXAM: At the time of discharge, Megan is calm and cooperative and makes good eye contact. She is alert and oriented x3. Her grooming is good. Her speech pace is normal. Her thought processes are logical. She is not psychotic or delusional. She denies auditory and visual hallucinations. She denies suicidal and homicidal ideations. Insight and judgment are fair to good. She is willing to follow up. I urged her to see a PCP and to be referred to Neurology due to having recently fallen. DISCHARGE INSTRUCTIONS TO THE PATIENT: A. Medications: 1. Bupropion SR 100 mg daily. 2. Fluoxetine 20, 40 mg daily. 3. Omeprazole 20 mg daily. 4. Quetiapine 400 mg at bedtime as needed for insomnia. B. Diet is regular. C. Activities as tolerated. She is a non-smoker. The hemoglobin A1c is pending at the time of discharge. At this moment, it is 5.9. E. Followup care. She has an appointment at [facility]. Substance abuse followup is not indicated, although she is encouraged to not drink alcohol. HOSPITAL COURSE: Chief Complaint: "I don't remember anything that happened." The patient is a 57-year-old white female who is single with a history of major depressive disorder and alcohol use disorder, who arrived brought in by the police under 9.39 status after going up to a woman named Deb's house leaving a note and allowing blood to be left on the door knob. The problem with the story is that Megan does not remember any of it. Nevertheless, she has cut espinal on her left wrist, which she also does not remember inflicting. She states that the woman, Deb, who she went to her house they had some kind of almost romantic relationship, but Deb asked her in January not to come back, so in trying to be respectful, Megan has not been back since January. Nevertheless, there is some kind of problem, Megan does not remember doing this. This is not the first episode of her not being able to remember things. She is under significant stress. Her roommate, Lula, has some manner of dementia and money is tight. She works long hours at [employer] for [employer]. She states she missed her meds for a few days. She "got so stressed out that I. popped out of the picture." She has no idea why she cut her left wrist. She states that recently, she had begun feeling better letting go of things "I am pretty much a squirrel. a loner." Interestingly, Megan did have a few drinks. By the time she got to the hospital, her alcohol level was 0.034, but she is unclear when she started drinking or exactly how much as she is evasive about that. Part B. Psychiatric treatment was rendered. Megan was admitted to the adult behavioral unit and placed on 15-minute checks for her safety. Megan did well on the unit staying to herself, but being cooperative. When she interacted with peers, she was pleasant and cooperative. There were no med changes made. No new medications were started. Her HbA1c is 5.9. Her triglycerides are 227, cholesterol is 295, LDL cholesterol 177, HDL cholesterol 72.5. Incidentally, her TSH is 1.14. It appears that a recent fall for Megan may have caused her some reduced cognitive faculties. She has had multiple concussions throughout her life and these have apparently according to her previous MRI from around 2008 damaged her brain matter. In this context, it is possible that even a small amount of alcohol could cause blackouts. Nevertheless, it is important for Megan to go see a neurologist as her episodes of amnesia are problematic to her and may continue this way. She initially stated she did not want to see a neurologist because things got better when she and Dr. Luis Aguirre started figuring out different medications. I encouraged her to also go to a neurologist, as this may be the most relevant way of taking care of her problem. She only stayed 1 day. It does not appear to me that she was psychotic; it appears that she may have been mildly intoxicated and had a blackout. She is improved and she is in a good mood. She is committed to better self-care and working appropriately less and she agrees that drinking is not compatible with her body at this time. STEPHANIE CASTRO, SHMUEL [id number]/[facility] #: [id number] MOLLY
== END 2018-05-19 11:15 | disposition home or self-care (01) | DRG 754 ==
LOC: ED 17:07 → BSU 05-18 05:00
PROVIDERS: ADMIT Psychiatry & Neurology Psychiatry; ATTEND Psychiatry & Neurology Psychiatry
DX: F32.9 Major depressive disorder, single episode, unspecified (principal); R45.851 Suicidal ideations; Z79.899 Other long term (current) drug therapy
CPT/HCPCS: 36415; 80053; 80061; 80307; 80320; 80329; 81003; 81015; 83036; 84443; 84702; 85025; 87086; 99222; 99238; 99284; A9270-GY; G0480

== ENCOUNTER 2018-06-06 08:25 | Emergency (ER) | payer OTHER ==
[2018-06-06 08:34] VITALS: BP 136/80
--- NOTE | 2018-06-06 08:51 | UC ---
Ear Complaint HPI - HPI Summary HPI Summary: Patient presents with three week onset chest congestion, cough, and more recently right ear pain, with decreased hearing, and sounds of fluid in the ear. She denies any fever, chills, trauma or canal drainage associated with her complaints. She offers no other concerns or complaints at this visit. - History of Current Complaint Chief Complaint: UCGeneralIllness Stated Complaint: EAR PAIN Time Seen by Provider: 06/06/18 08:31 Hx Obtained From: Patient Hx Last Menstrual Period: na ?: No Onset/Duration: Gradual Onset, Lasting Weeks Severity Initially: Mild Severity Currently: Moderate Pain Intensity: 9 Aggravating Factors: Nothing Alleviating Factors: Nothing Associated Signs/Symptoms: Positive: Hearing Loss, Swelling @ - right tonsil node., URI Symptoms - Allergies/Home Medications Allergies/Adverse Reactions: Allergies Allergy/AdvReac Type Severity Reaction Status Date / Time Penicillins Allergy Swelling Verified 06/06/18 08:35 Sulfa (Sulfonamide Allergy Itching Verified 06/06/18 08:35 Antibiotics) PMH/Surg Hx/FS Hx/Imm Hx Previously Healthy: Yes GI/ History: Gastroesophageal Reflux Psychological History: Depression Other History Of: Negative For: Anticoagulant Therapy - daily Aleve for pain - Surgical History Surgical History: Yes Surgery Procedure, Year, and Place: both knees,(cartilage repair) partial hyster (ovary/tube r/t tumor) - Family History Known Family History: Negative: Cardiac Disease, Hypertension, Diabetes - Social History Occupation: Employed Full-time Lives: Alone Alcohol Use: Occasionally Substance Use Type: None Smoking Status (MU): Heavy Every Day Tobacco Smoker Type: Cigarettes Amount Used/How Often: 1 ppd Household Exposure Type: Cigarettes - Immunization History Most Recent Influenza Vaccination: last season Most Recent Pneumonia Vaccination: never Review of Systems Constitutional: Negative Skin: Negative Eyes: Negative ENT: Ear Ache, Sinus Congestion Respiratory: Cough Cardiovascular: Negative Gastrointestinal: Negative Genitourinary: Negative Motor: Negative Neurovascular: Negative Musculoskeletal: Negative Neurological: Negative Psychological: Negative Is Patient Immunocompromised?: No All Other Systems Reviewed And Are Negative: Yes Physical Exam Triage Information Reviewed: Yes Appearance: Well-Appearing Vital Signs: Initial Vital Signs Temp 97.9 F 06/06/18 08:29 Pulse 69 06/06/18 08:29 Resp 18 06/06/18 08:29 BP 136/80 06/06/18 08:29 Pulse Ox 97 06/06/18 08:29 Vital Signs Reviewed: Yes Eye Exam: Normal ENT: Positive: TM bulging, TM dull, TM red, Tonsillar swelling Neck exam: Normal Respiratory Exam: Normal Cardiovascular Exam: Normal Musculoskeletal Exam: Normal Neurological Exam: Normal Neurological: Positive: Alert Skin Exam: Normal Ear Complaint Course/Dx - Course Course Of Treatment: Patient presents with clinical signs of right otitis media , she will be treated with zpak, and tylenol. She was told to folllow up if her symtpoms worsen, persist or other symtpoms develop that were not present at the time of this visit. She verbalized understanding of and in agreement with the discharge plan. - Differential Dx/Diagnosis Differential Diagnosis/HQI/PQRI: Otitis Media Provider Diagnoses: otitis media Discharge - Sign-Out/Discharge Documenting (check all that apply): Patient Departure All imaging exams completed and their final reports reviewed: No Studies - Discharge Plan Condition: Stable Disposition: HOME Prescriptions: Azithromycin TAB* [Zithromax TAB (Z-JUAN CARLOS) 250 mg #6 tabs] 250 mg PO DAILY #6 tab Patient Education Materials: Ear Infection (ED) Referrals: Thalia Lu MD [Primary Care Provider] - Additional Instructions: If symptoms persist follow up with your PCP or return to the clinic as once for re-evaluation. - Billing Disposition and Condition Condition: STABLE Disposition: Home - Attestation Statements Document Initiated by Scribe: No Scribe Documentation Reviewed: No
== END 2018-06-06 08:50 | disposition home or self-care (01) ==
LOC: UCEAST 08:25
DX: H66.91 Otitis media, unspecified, right ear (principal); R05 Cough; R09.89 Other specified symptoms and signs involving the circulatory and respiratory systems; F17.210 Nicotine dependence, cigarettes, uncomplicated; Z88.0 Allergy status to penicillin; Z88.2 Allergy status to sulfonamides
CPT/HCPCS: 99212; G0463

== ENCOUNTER 2019-08-19 10:00 | Emergency (ER) | payer SELFPAY ==
[2019-08-19] MEDS ORDERED: Ketorolac *IM* INJ* 60 MG/2 ML VIAL IM ONE (12:36)
[2019-08-19] MEDS ORDERED: Cyclobenzaprine TAB* 10 MG PO ONE (12:36)
[2019-08-19 13:23] VITALS: BP 134/80
--- NOTE | 2019-08-19 14:30 | ED ---
Back Pain - HPI Summary HPI Summary: This patient is a 58-year-old female presenting to the ED with acute on chronic low back pain. Patient states symptoms have been present for a few days. She states she has had multiple treatments for this in the past including physical therapy, Demerol, steroid injections, pain management and massage. She is never seen a neurosurgeon. Symptoms began 3 days ago without associated trauma or injury. She states it begins in the lower spine and wraps around bilaterally to the lower quadrants. Denies any urinary symptoms or gross hematuria. Patient denies any numbness or tingling bilaterally to the lower extremities. Denies any bladder or bowel dysfunction. Denies any weakness noted. Denies fevers or IV drug use. She states she is otherwise healthy and has not taken any medication at home for relief. - History of Current Complaint Chief Complaint: EDBackInjuryPain Stated Complaint: BACK PAIN PER PT Time Seen by Provider: 08/19/19 12:02 Hx Obtained From: Patient Hx Last Menstrual Period: na Onset/Duration: Sudden Onset Onset/Duration: Started Days Ago Timing: Constant Back Pain Location: Is Discrete @ - low spine Severity Initially: Moderate Severity Currently: Moderate Pain Intensity: 6 Pain Scale Used: 0-10 Numeric Character: Aching Aggravating Symptom(s): Movement Alleviating Symptom(s): Rest, Position Associated Signs And Symptoms: Negative: Swelling, Redness, Numbness, Bladder Incontinence, Bowel Incontinence, Weight Loss, Pain with Weight Bearing - Allergies/Home Medications Allergies/Adverse Reactions: Allergies Allergy/AdvReac Type Severity Reaction Status Date / Time Penicillins Allergy Swelling Verified 08/19/19 10:12 Sulfa (Sulfonamide Allergy Itching Verified 08/19/19 10:12 Antibiotics) PMH/Surg Hx/FS Hx/Imm Hx Previously Healthy: Yes Endocrine/Hematology History: Denies: Hx Anticoagulant Therapy - daily Aleve for pain, Hx Blood Disorders, Hx Diabetes, Hx Thyroid Disease, Hx Anemia, Hx Unexplained Bleeding Cardiovascular History: Denies: Hx Hypertension Respiratory History: Denies: Hx Asthma, Hx Chronic Obstructive Pulmonary Disease (COPD) GI History: Reports: Hx Gastroesophageal Reflux Disease, Hx Hiatal Hernia Denies: Hx Cirrhosis, Hx Crohn's Disease, Hx Diverticulosis, Hx Gall Bladder Disease, Hx Irritable Bowel, Hx Ulcer Musculoskeletal History: Reports: Hx Back Problems Sensory History: Reports: Hx Contacts or Glasses - glasses, Hx Hearing Problem - left ear Denies: Hx Hearing Aid Opthamlomology History: Reports: Hx Contacts or Glasses - glasses Neurological History: Reports: Hx Headaches, Other Neuro Impairments/Disorders - reports history of 12 concussions Psychiatric History: Reports: Hx Depression, Hx Inpatient Treatment, Hx Community Mental Health Tx, Hx of Violent Episodes Against Others, Hx Substance Abuse, Other Psychiatric Issues/Disorders Denies: Hx Eating Disorder - Surgical History Surgery Procedure, Year, and Place: both knees,(cartilage repair) partial hyster (ovary/tube r/t tumor), "female stuff" - Immunization History Date of Tetanus Vaccine: unsure Hx Pertussis Vaccination: No Immunizations Up to Date: Yes Infectious Disease History: No Infectious Disease History: Denies: Hx Clostridium Difficile, Hx Hepatitis, Hx Human Immunodeficiency Virus (HIV), Hx of Known/Suspected MRSA, Hx Shingles, Hx Tuberculosis, Hx Known/ Suspected VRE, Hx Known/Suspected VRSA, History Other Infectious Disease, Traveled Outside the [place] in Last 30 Days - Family History Known Family History: Negative: Cardiac Disease, Hypertension, Diabetes - Social History Occupation: Employed Full-time Lives: With Family Alcohol Use: Rare Hx Substance Use: No Substance Use Type: Reports: None Hx Tobacco Use: Yes Smoking Status (MU): Heavy Every Day Tobacco Smoker Type: Cigarettes Amount Used/How Often: 1 ppd Review of Systems Negative: Fever, Chills, Fatigue, Skin Diaphoresis Negative: Palpitations, Chest Pain Negative: Shortness Of Breath, Cough Genitourinary: Negative Positive: no symptoms reported, see HPI Positive: Arthralgia - low back pain - radiating to the bilateral lower quadrants. Negative: Myalgia Negative: Rash, Bruising Neurological: Negative All Other Systems Reviewed And Are Negative: Yes Physical Exam Triage Information Reviewed: Yes Vital Signs On Initial Exam: Initial Vitals Temp Pulse Resp BP Pulse Ox 97.7 F 71 20 122/80 97 08/19/19 10:08 08/19/19 10:08 08/19/19 10:08 08/19/19 10:08 08/19/19 10:08 Vital Signs Reviewed: Yes Appearance: Positive: Well-Appearing, Well-Nourished Skin: Positive: Warm, Skin Color Reflects Adequate Perfusion Head/Face: Positive: Normal Head/Face Inspection Eyes: Positive: EOMI, ANIL, Conjunctiva Clear Neck: Positive: Supple, No Lymphadenopathy Respiratory/Lung Sounds: Positive: Clear to Auscultation, Breath Sounds Present Cardiovascular: Positive: RRR, Pulses are Symmetrical in both Upper and Lower Extremities Musculoskeletal: Positive: Normal, Strength/ROM Intact Neurological: Positive: Speech Normal Psychiatric: Positive: Normal, Affect/Mood Appropriate AVPU Assessment: Alert Procedures - Sedation Patient Received Moderate/Deep Sedation with Procedure: No Diagnostics - Vital Signs Vital Signs Temp Pulse Resp BP Pulse Ox 08/19/19 13:22 97.3 F 67 16 134/80 98 08/19/19 10:08 97.7 F 71 20 122/80 97 - Laboratory Lab Statement: Any lab studies that have been ordered have been reviewed, and results considered in the medical decision making process. Back Pain Course/Dx - Course Course Of Treatment: During the course of treatment, the patient is evaluated for low back pain which radiates to the bilateral lower quadrants. Denies any associated urinary symptoms or gross hematuria. Patient has acute tenderness on light palpation to the lower spine. No step-off noted. No signs of trauma or ecchymosis. Lungs CTA, RRR. Patient appears well and nondiaphoretic. She does appear to be in mild pain distress. Discussed giving Toradol as well as Flexeril for her symptoms acutely, however she is encouraged to follow up with her PCP regarding further treatment. She is given a note for work. - Diagnoses Differential Diagnosis/HQI/PQRI: Positive: Fracture, Herniated Disc, Strain, Sprain Provider Diagnoses: Back pain Discharge ED - Sign-Out/Discharge Documenting (check all that apply): Patient Departure - Discharge Plan Condition: Stable Disposition: HOME Prescriptions: Cyclobenzaprine TAB* [Flexeril TAB*] 10 mg PO BID PRN #10 tab PRN Reason: Spasms Ketorolac TAB * [Toradol TAB *] 10 mg PO Q6H #16 tab predniSONE 50 mg TAB [Deltasone 50 mg TAB] 50 mg PO DAILY #5 tab MDD 1 Patient Education Materials: Back Pain (ED) Forms: *Work Release Referrals: Thalia Lu MD [Primary Care Provider] - Additional Instructions: Take prednisone once daily x5 days - take in the morning or afternoon, do not take at night Rest and gentle stretches after moist heat Flexeril twice daily as needed for muscle spasms Toradol four times daily x 4 days - DO NOT TAKE IBUPROFEN WHILE TAKING THIS MEDICATION You may also take tylenol in addition - Billing Disposition and Condition Condition: STABLE Disposition: Home
== END 2019-08-19 13:22 | disposition home or self-care (01) ==
LOC: ED 10:00
DX: M54.5 Low back pain (principal); F17.210 Nicotine dependence, cigarettes, uncomplicated; K21.9 Gastro-esophageal reflux disease without esophagitis
CPT/HCPCS: 96372; 99282; A9270-GY; J1885